=== PATIENT | male | born 1975 | race Caucasian/White ===

== ENCOUNTER 2017-01-14 16:16 | Emergency (ER) | payer MEDICAID ==
--- NOTE | 2017-01-14 17:11 | EDM.PDOC ---
ED HPI GENERAL MEDICAL PROBLEM - General Chief Complaint: Lower Extremity Injury/Pain Stated Complaint: MULTIPLE INJURIES Time Seen by Provider: 01/14/17 17:04 Source of Information: Reports: Patient History Limitations: Reports: No Limitations - History of Present Illness INITIAL COMMENTS - FREE TEXT/NARRATIVE: 41 year old male is sent over from the walk in clinic for evaluation and treatment of multiple injuries. Patient reports he was playing football last night with family. States today he woke up sore with swelling to the right 5th finger and right lower leg. Current symptoms include low back pain, pain to the anterior lower leg, swelling to the anterior lower leg, pain and swelling to the right 5th finger. No numbness, tingling, syncope, open wounds, headaches, nausea, vomiting, chest pain or abdominal pain. No treatments prior to arrival. Patient is from [facility]. Plans on going home in the next week. Location: Reports: Back (lower back), Upper Extremity, Right, Lower Extremity, Right Right Leg Pain Score (Numeric/FACES): 8 Right Hand Pain Score (Numeric/FACES): 8 Lower Back Pain Score (Numeric/FACES): 8 - Related Data Allergies Allergy/AdvReac Type Severity Reaction Status Date / Time tramadol Allergy Vomiting Verified 01/14/17 16:42 Home Meds: Home Meds Acetaminophen/oxyCODONE [Percocet 325-5 MG] 1 tab PO Q6H PRN #7 tablet 01/14/17 [Rx] LORazepam 0.5 mg PO DAILY 01/14/17 [History] LORazepam [Ativan] 0.5 mg PO ONETIME #5 tablet 01/14/17 [Rx] Metoprolol Tartrate 25 mg PO DAILY 01/14/17 [History] Metoprolol Tartrate 25 mg PO DAILY #5 tablet 01/14/17 [Rx] Past Medical History Cardiovascular History: Reports: Hypertension Social & Family History - Tobacco Use Smoking Status *Q: Never Smoker - Caffeine Use Caffeine Use: Reports: None - Recreational Drug Use Recreational Drug Use: No Review of Systems - Review of Systems Review Of Systems: See Below Respiratory: Denies: Shortness of Breath Cardiovascular: Denies: Chest Pain GI/Abdominal: Denies: Abdominal Pain, Nausea, Vomiting Musculoskeletal: Reports: Back Pain (lower back), Hand Pain (right hand 5th finger ), Leg Pain (right lower leg), Other (swelling to the right anterior tibia; swelling to the right 5th finger) Skin: Denies: Bruising, Wound Neurological: Denies: Headache, Numbness, Syncope, Tingling ED EXAM, GENERAL - Physical Exam Exam: See Below Exam Limited By: No Limitations General Appearance: Alert, WD/WN, No Apparent Distress Respiratory/Chest: No Respiratory Distress Cardiovascular: Normal Peripheral Pulses, Regular Rate, Rhythm Peripheral Pulses: 2+: Radial (L), Radial (R), Posterior Tibial (L), Posterior Tibial (R), Dorsalis Pedis (L), Dorsalis Pedis (R) Back Exam: Normal Inspection, Paraspinal Tenderness (L3-sacrum, bilateral). No : Vertebral Tenderness Extremities: Limited Range of Motion (right hand 5th finger has decreased flexion), Other (swelling to the right 5th finger; swelling to the right anterior tibia and fibula) Neurological: Alert, Oriented, Normal Cognition Skin Exam: Warm, Dry, Normal Color. No: Ecchymosis, Wound/Incision Course - Vital Signs Last Recorded V/S: Last Vital Signs Temp 37.1 C 01/14/17 16:39 Pulse 60 01/14/17 18:53 Resp 18 01/14/17 18:53 BP 141/83 H 01/14/17 18:53 Pulse Ox 97 01/14/17 18:53 - Radiology Interpretation Free Text/Narrative:: xray of the lumbar spine shows no acute fractures or dislocations xray of the right hand shows soft tissue swelling to the 5th finger, no acute fractures or dislocations xray of the tibia and fibula shows soft tissue swelling, no acute fractures or dislocations. - Re-Assessments/Exams Free Text/Narrative Re-Assessment/Exam: 01/14/17 18:19 I reviewed the xrays with the patient. Patent is visiting from [place]. He has left his metoprolol and ativan at hot. i will provide a few days of medication. Discharge instructions as documented. Departure - Departure Time of Disposition: 18:25 Disposition: Home, Self-Care 01 Condition: Good Clinical Impression: Contusion - Discharge Information Prescriptions: Acetaminophen/oxyCODONE [Percocet 325-5 MG] 1 tab PO Q6H PRN #7 tablet PRN Reason: Pain LORazepam [Ativan] 0.5 mg PO ONETIME #5 tablet Metoprolol Tartrate 25 mg PO DAILY #5 tablet Instructions: Contusion Referrals: PCP,None [Primary Care Provider] - Forms: ED Department Discharge Additional Instructions: Continue taking your Ativan and metoprolol as prescribed. Ice the sore areas. Expect to be sore for the next week. The first 3 days will be the worst. If you continue to have symptoms, beyond 1 week follow-up with your primary care provider. Percocet 1 tab every 4-6 hours as needed for severe pain. Do not drive or operative machinery within 12 hours of taking Percocet. Percocet can be habit- forming, I recommend you take as few as needed to control your pain. Please return to ER if your symptoms change or worsen.
[2017-01-14 18:54] VITALS: BP 141/83
--- NOTE | 2017-01-15 08:41 | CR ---
Right tibia and fibula: Two views of the right tibia and fibula were obtained. No fracture or other bony abnormality is seen. Impression: 1. No abnormality is identified on two-view right tibia and fibula study. Diagnostic code #1
--- NOTE | 2017-01-15 08:41 | CR ---
Lumbar spine: AP, lateral and coned-down lateral views centered to the lumbosacral junction were obtained. Vertebral body heights and disc spaces are preserved. Minimal endplate osteophytes are noted within L4 and L5. Pedicles as well as transverse and spinous processes are intact. No subluxation or fracture is seen. Vascular calcification is noted within the aorta. Impression: 1. Minimal degenerative change. Nothing acute is identified on three-view lumbar spine exam. Diagnostic code #2
--- NOTE | 2017-01-15 08:41 | CR ---
Right hand: Four views of the right hand were obtained. Comparison: No previous study. Mild joint space narrowing is scattered within the DIP and PIP joints. No acute fracture, dislocation or other bony abnormality is appreciated. Impression: 1. Mild degenerative change. Nothing acute is appreciated on right hand exam. Diagnostic code #2
== END 2017-01-14 19:05 | disposition home or self-care (01) ==
LOC: JD.ED 16:16
DX: S30.0XXA Contusion of lower back and pelvis, initial encounter (principal); S60.221A Contusion of right hand, initial encounter; S80.11XA Contusion of right lower leg, initial encounter; I10 Essential (primary) hypertension; Z79.899 Other long term (current) drug therapy; Z88.5 Allergy status to narcotic agent; Y93.61 Activity, american tackle football
CPT/HCPCS: 72100; 72100-26; 73130-26-RT; 73130-RT; 73590-26-RT; 73590-RT; 99283; 99284